=== PATIENT | female | born 1995 | race Caucasian/White ===

== ENCOUNTER 2017-04-21 12:31 | Inpatient (IN) | payer OTHER ==
[~2017-04-21] VITALS: Ht 157.5 cm; Wt 88.3 kg
[~2017-04-21 12:31] MED LIST: IBUP-1542 PO
[2017-04-21 13:00] VITALS: BP 105/59; PULSE 121; Ht 157.5 cm; Wt 88.3 kg
[2017-04-21] MEDS ORDERED: PRENAT PO (13:01)
[2017-04-21] MEDS: LACTATED RINGER'S 1,000 ML IV SCH ×4 (13:44→22:41)
[2017-04-21] MEDS ORDERED: DINOPROSTONE 10 MG VAG SUPP VAG ONE (15:00)
[2017-04-21] MEDS ORDERED: CARBOPROST 250 MCG INJ IM PRN (15:00)
[2017-04-21] MEDS ORDERED: OXYTOCIN 30 UNITS/LR 500 ML IV PRN (15:00)
[2017-04-21] MEDS ORDERED: OXYTOCIN 30 UNITS/LR 500 ML IV SCH ×2 (15:00)
[2017-04-21] MEDS ORDERED: LACTATED RINGER'S 1,000 ML IV PRN (15:00)
[2017-04-21] MEDS ORDERED: MISOPROSTOL 200 MCG TAB PR PRN (15:00)
[2017-04-21] MEDS ORDERED: LIDOCAINE 1% (MPF) 30 ML INJ INJ PRN (15:00)
[2017-04-21] MEDS ORDERED: METHYLERGONOVINE 0.2 MG INJ IM PRN (15:00)
[2017-04-21 15:27] LABS: ADD SCAN DIFF NO
[2017-04-21 15:29] LABS: BASOPHILS % 0.2 % (0.0-2.0); EOSINOPHILS # 0.1 10^3/ul (0.0-0.5); EOSINOPHILS % 0.7 % (0.0-7.0); HEMATOCRIT 33.7 % (37.0-47.0); HEMOGLOBIN 11.5 g/dl (12.0-16.0); LYMPHOCYTES # 1.6 10^3/ul (0.8-2.9); MEAN CORPUSCULAR HEMOGLOBIN 26.7 pg (29.0-33.0); MEAN CORPUSCULAR HGB CONC 34.1 g/dl (32.0-37.0); MEAN CORPUSCULAR VOLUME 78.2 fl (82.0-101.0); MEAN PLATELET VOLUME 11.2 fl (7.4-10.4); MONOCYTE # 0.5 10^3/ul (0.3-0.9); MONOCYTES % 5.9 % (0.0-11.0); NEUTROPHIL # 6.6 10^3/ul (1.6-7.5); NEUTROPHILS % 73.8 % (39.0-77.0); PLATELET COUNT 214 10^3/UL (140-415); RED BLOOD COUNT 4.31 10^6/ul (4.20-5.40); RED CELL DISTRIBUTION WIDTH 14.3 % (11.5-14.5); WHITE BLOOD COUNT 8.9 10^3/ul (4.8-10.8)
[2017-04-21 15:46] LABS: INR 0.97; PARTIAL THROMBOPLASTIN TIME 30.4 Sec (25.0-35.0); PROTIME 12.9 Sec (12.2-14.2)
[2017-04-21] MEDS ORDERED: BUTORPHANOL 2 MG INJ IV PRN (16:00)
[2017-04-21] MEDS ORDERED: AMPICILLIN 2 GM/NS (PMX) 0 ML ONE (16:59)
[2017-04-21] MEDS ORDERED: CLINDAMYCIN 900 MG/D5W (PMX) 50 ML IVPB ONE (17:07)
[2017-04-21] MEDS ORDERED: CLINDAMYCIN 900 MG/D5W (PMX) 50 ML IVPB SCH (17:30)
[2017-04-22] MEDS: CITRIC ACID/SODIUM CITRATE 15 ML CUP PO ONE ×2 (04:33→22:39)
[2017-04-22] MEDS: LACTATED RINGER'S 1,000 ML IV SCH ×3 (06:05→19:56)
[2017-04-22] MEDS ORDERED: FENTAnyl 2MCG/ML-ROPIV 0.2% 100 ML ONE (06:08)
[2017-04-22] MEDS ORDERED: DIPHENHYDRAMINE 50 MG INJ IM ONE (14:00)
[2017-04-22] MEDS ORDERED: DIPHENHYDRAMINE 50 MG INJ ONE (14:03)
[2017-04-22 19:45] VITALS: BP 100/62; PULSE 89; RESP 18
[2017-04-22] MEDS ORDERED: ZOLPIDEM 5 MG TAB PO PRN (22:00)
[2017-04-22] MEDS ORDERED: LANOLIN 7 GM TUBE TOP PRN (22:00)
[2017-04-22] MEDS: IBUPROFEN 600 MG TAB PO SCH ×2 (22:00→23:36)
[2017-04-22] MEDS: SENNA/DOCUSATE NA (8.6MG/50MG) TAB PO SCH (22:00)
[2017-04-22] MEDS ORDERED: METHYLERGONOVINE 0.2 MG INJ IM PRN (22:00)
[2017-04-22] MEDS ORDERED: BENZOCAINE 20% 56 ML SPRAY TOP PRN (22:00)
[2017-04-22] MEDS ORDERED: OXYCODONE/ASPIRIN (4.88/325) TAB PO PRN ×2 (22:00)
[2017-04-22] MEDS ORDERED: OXYTOCIN 30 UNITS/LR 500 ML IV PRN (22:00)
[2017-04-22] MEDS ORDERED: CARBOPROST 250 MCG INJ IM PRN (22:00)
[2017-04-22] MEDS ORDERED: MISOPROSTOL 200 MCG TAB PR PRN (22:00)
[2017-04-22] MEDS ORDERED: WITCH HAZEL/GLYCERIN PAD PR PRN (22:00)
[2017-04-22 23:30] VITALS: BP 112/67; PULSE 89; RESP 19
[2017-04-23 03:45] VITALS: BP 112/74; PULSE 85; RESP 18
[2017-04-23] MEDS: IBUPROFEN 600 MG TAB PO SCH ×4 (05:30→23:45)
[2017-04-23 07:45] VITALS: BP 100/66; PULSE 86; RESP 16
[2017-04-23 07:46] LABS: ADD SCAN DIFF NO
[2017-04-23 07:49] LABS: BASOPHILS % 0.3 % (0.0-2.0); EOSINOPHILS # 0.1 10^3/ul (0.0-0.5); EOSINOPHILS % 0.6 % (0.0-7.0); HEMATOCRIT 34.9 % (37.0-47.0); HEMOGLOBIN 11.3 g/dl (12.0-16.0); LYMPHOCYTES % 17.8 % (15.0-51.0); MEAN CORPUSCULAR HGB CONC 32.4 g/dl (32.0-37.0); MEAN CORPUSCULAR VOLUME 80.4 fl (82.0-101.0); MEAN PLATELET VOLUME 11.1 fl (7.4-10.4); MONOCYTE # 0.5 10^3/ul (0.3-0.9); MONOCYTES % 4.9 % (0.0-11.0); NEUTROPHIL # 8.3 10^3/ul (1.6-7.5); NEUTROPHILS % 75.6 % (39.0-77.0); PLATELET COUNT 169 10^3/UL (140-415); RED BLOOD COUNT 4.34 10^6/ul (4.20-5.40); RED CELL DISTRIBUTION WIDTH 14.6 % (11.5-14.5); WHITE BLOOD COUNT 10.9 10^3/ul (4.8-10.8)
[2017-04-23] MEDS: SENNA/DOCUSATE NA (8.6MG/50MG) TAB PO SCH ×2 (09:29→21:02)
[2017-04-23 12:15] VITALS: BP 124/66; PULSE 84; RESP 16
--- NOTE | 2017-04-23 15:52 | HP ---
Date/Time of Note Date/Time of Note DATE: 04/23/17 TIME: 15:40 OB - History Hx of Present Free Text/Dictation 27y.o primigravida at 39w3d for induction of labor VE cx close long -2 cervidil was chosen for induction Chief Complaint: srom Estimated Due Date: Apr 24, 2017 : 1 Para: 0 Spontaneous : 0 Therapeutic : 0 Care: Good Care Ultrasounds: Normal mid trimester US Obstetrical Complications: None Medical Complications: None Past Family/Social History * Past Medical, Surgical, Family and Obstetric Histories reviewed from chart. Blood Type: O+ Rubella: immune RPR/VDRL: Negative GBS Status: Negative HBsAG: Negative OB Admission Exam Vital Signs Vital Signs Vital Signs Date Time Temp Pulse Resp B/P Pulse Ox O2 Delivery O2 Flow Rate FiO2 04/23/17 12:15 98.6 84 16 124/66 Room Air Physical Exam HEENT: WNL Heart: Rhythm Normal Lungs: Clear, Equal Abdomen: WNL Extremities: Normal Reflexes: Normal Cervical Dilatation: None Effacement: 0% Station: -2 Membranes: Intact Heart Rate: 140's Accelerations: Accelerations Present Varibility: Moderate Contractions on Admission: None Last 72 hours Lab Results CBC & BMP 04/21/17 13:45 04/23/17 07:18 OB Assessment/Plan Reason for admission: induction of labor Induction Method: per Misoprostol Protocol DANNY CASTORENA MD Apr 23, 2017 15:51
--- NOTE | 2017-04-23 15:57 | LDN ---
Date/Time of Note Date/Time of Note DATE: 04/23/17 TIME: 15:53 Delivery Summary normal vaginal delivery Weeks of Gestation IUP 39w5d Placenta Delivered: Spontaneously Meconium: none Episiotomy: No Perineal laceration: 1 Laceration repair: multiple vagianl lacerations 000 ch gut Anesthesia type: Epidural Estimated blood loss: 100 Sponge & Needle done & correct: Yes All needle counts correct: Yes Any foreign bodies felt in the: No Problems: Delivery Information Sex Sex: male Apgars 1 Minute: 8 5 Minute: 9 Suctioning Nose & mouth suctioned at leni: Yes Umbilical Cord Umbilical cord with: 3 Vessels Cord presentations: nuchal cord Cord Blood was obtained: Yes Mother & Baby Disposition Disposition Mom & Baby to Maternity; Good: Yes Mom transferred to: Other () Baby to NICU: No DANNY CASTORENA MD Apr 23, 2017 15:57
[2017-04-23 16:00] VITALS: BP 111/71; PULSE 89; RESP 18
--- NOTE | 2017-04-23 16:00 | PN ---
Date/Time of Note Date/Time of Note DATE: 04/23/17 TIME: 15:57 OB Subjective Subjective Subjective no c/o voiding well OB Objective Objective Objective vss afebrile fundus firm lochia min calf neg for tenderness OB Assessment/Plan Other Assessment: stable post vagianl delivery Other plan: d/susi in am DANNY CASTORENA MD Apr 23, 2017 15:59
[2017-04-23 20:30] VITALS: BP 107/79; PULSE 86; RESP 20
[2017-04-23 23:30] VITALS: BP 111/62; PULSE 86; RESP 20
[2017-04-24 03:45] VITALS: BP 112/60; PULSE 84; RESP 18
[2017-04-24] MEDS: IBUPROFEN 600 MG TAB PO SCH ×2 (06:01→12:29)
[2017-04-24 08:00] VITALS: BP 101/63; PULSE 79; RESP 18
[2017-04-24] MEDS ORDERED: DIPHTH/TET/ACEL PERTUSS (ADULT) 0.5 ML VIAL IM* ONE (09:00)
[2017-04-24] MEDS: SENNA/DOCUSATE NA (8.6MG/50MG) TAB PO SCH (09:14)
--- NOTE | 2017-04-24 12:58 | DS ---
Date/Time of Note Date/Time of Note DATE: 04/24/17 TIME: 12:56 Obstetrical Discharge Record Final Diagnosis Final Diagnosis: Term delivered Vaginal Delivery Obstetrical Delivery: Spontaneous, Laceration, Repaired Complications Induction: Yes Rupture of Membranes: No Condition on Discharge Physical Assessment Last Vitals: vss afebrile Voiding: Yes Bowel Movement: Yes Breast: Soft, non-tender Fundus: Firm Calf Tenderness: No Patient Condition: Stable DANNY CASTORENA MD Apr 24, 2017 12:58
--- NOTE | 2017-04-24 13:00 | PD.PPDC ---
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
== END 2017-04-24 13:58 | disposition home or self-care (01) | DRG 775 ==
LOC: OBT 12:31 → L-D 12:32 → OBT 14:41 → L-D 14:43 → PP1 04-22 17:08
PROVIDERS: ADMIT Obstetrics & Gynecology; ATTEND Obstetrics & Gynecology
PROC: 10E0XZZ Delivery of Products of Conception, External Approach (ICD-10-PCS; principal; 2017-04-23)
PROC: 0KQM0ZZ Repair Perineum Muscle, Open Approach (ICD-10-PCS; 2017-04-23)
PROC: 3E0P7GC Introduction of Other Therapeutic Substance into Female Reproductive, Via Natural or Artificial Opening (ICD-10-PCS; 2017-04-23)
PROC: 3E00X4Z Introduction of Serum, Toxoid and Vaccine into Skin and Mucous Membranes, External Approach (ICD-10-PCS; 2017-04-24)
DX: O69.81X0 Labor and delivery complicated by cord around neck, without compression, not applicable or unspecified (principal); O71.4 Obstetric high vaginal laceration alone; Z3A.39 39 weeks gestation of pregnancy; Z37.0 Single live birth; Z23 Encounter for immunization
CPT/HCPCS: 62319; 85025; 85610; 85730; 86592; 86900; 86901; 87340; 90715; 99464; G0463; J0290; J0595; J1200; J2590; J3010; J7120

== ENCOUNTER 2017-08-08 19:37 | Emergency (ER) | payer SELFPAY ==
[~2017-08-08] VITALS: Ht 162.6 cm; Wt 85.0 kg
[~2017-08-08 19:37] MED LIST changes: +PRENAT PO
[2017-08-08 19:43] VITALS: Ht 162.6 cm; Wt 85.0 kg
== END 2017-08-08 21:05 | disposition left against medical advice (07) ==
LOC: E/R 19:37
DX: Z53.21 Procedure and treatment not carried out due to patient leaving prior to being seen by health care provider (principal)

== ENCOUNTER 2017-12-11 14:00 | Inpatient (IN) | END 2017-12-12 11:10 | disposition home or self-care (01) | DRG 782 ==